=== PATIENT | male | born 1940 | race African-American/Black ===

== ENCOUNTER 2017-01-04 07:12 | Day surgery (SDC) | payer OTHER ==
[2017-01-03 17:22] VITALS: BMI 28.7
--- NOTE | 2017-01-04 06:09 | HP ---
History & Physical Update - History History: No Change - Physical Physical: No Change - Assessment Assessment: No Change - Plan Plan: No Change
[~2017-01-04 07:12] MED LIST: TOBRA 0.3%/DEXAMETH 0.1% OPHTHALMIC SUSP 2.5 ML BTL TP ONE
[2017-01-04] MEDS ORDERED: BSS (NA/CA/MG/K) BALANCED SALT SOLUTION OPHTH SOLN 15 ML BOTTLE ONE (07:19)
[2017-01-04] MEDS ORDERED: LIDOCAINE HCL/PF 1% SDV 5ML VIAL ONE (07:19)
[2017-01-04 07:35] VITALS: TEMP 98
[2017-01-04] MEDS ORDERED: CYCLOPENTOLATE HCL 1% OPHTH SOLN 2 ML BOTTLE ONE (07:47)
[2017-01-04] MEDS ORDERED: PHENYLEPHRINE 2.5% OPHTH SOLN 15 ML BOTTLE ONE (07:47)
[2017-01-04] MEDS ORDERED: MOXIFLOXACIN HCL 0.5% OPHTHALMIC 3 ML BOTTLE ONE (07:47)
[2017-01-04] MEDS ORDERED: TROPICAMIDE 1% OPHTH SOLN 15 ML BOTTLE ONE (07:47)
[2017-01-04] MEDS: CYCLOPENTOLATE HCL 1% OPHTH SOLN 2 ML BOTTLE OP SCH ×2 (08:01→08:17)
[2017-01-04] MEDS: PHENYLEPHRINE 2.5% OPHTH SOLN 15 ML BOTTLE OP SCH ×2 (08:01→08:17)
[2017-01-04] MEDS: MOXIFLOXACIN HCL 0.5% OPHTHALMIC 3 ML BOTTLE OP SCH ×2 (08:01→08:17)
[2017-01-04] MEDS: TROPICAMIDE 1% OPHTH SOLN 15 ML BOTTLE OP SCH ×2 (08:01→08:17)
[2017-01-04] MEDS ORDERED: MIDAZOLAM HCL 2 MG/2 ML SINGLE DOSE VIAL ONE (08:48)
[2017-01-04] MEDS ORDERED: TETRACAINE 0.5% OPHTH SOLN 2 ML BOTTLE OS ONE (09:00)
[2017-01-04] MEDS ORDERED: POVIDONE-IODINE 5% OPHTHALMIC PREP 30 ML SOLUTION OS ONE (09:03)
[2017-01-04] MEDS ORDERED: LIDOCAINE HCL 1% PRESERVATIVE FREE - 30ML VIAL IO ONE ×2 (09:11)
[2017-01-04] MEDS ORDERED: CHONDROITIN SU A/HYALUR SOD 1 KIT IO ONE ×2 (09:11)
[2017-01-04] MEDS ORDERED: BSS (NA/CA/MG/K) BALANCED SALT SOLUTION OPHTH SOLN 15 ML BOTTLE OS ONE (09:11)
[2017-01-04] MEDS ORDERED: EPINEPHrine/PF 1 MG/1 ML (1:1,000) AMPULE SQ ONE (09:20)
[2017-01-04] MEDS ORDERED: ACETYLCHOLINE 1:100 INTRA-OCUL 20 MG/2 ML KIT IO ONE (09:55)
[2017-01-04] MEDS ORDERED: TOBRA 0.3%/DEXAMETH 0.1% OPHTHALMIC SUSP 2.5 ML BTL TP ONE (09:59)
[2017-01-04 11:23] VITALS: BP 135/74; PULSE 60
--- NOTE | 2017-01-04 21:48 | OP ---
DATE OF OPERATION: 01/04/2017 SURGEON: Santhosh Anton MD PREOPERATIVE DIAGNOSIS: Cataract, left eye. OPERATION: Phacoemulsification and intraocular lens implantation, left eye. POSTOPERATIVE DIAGNOSIS: Cataract, left eye. ANESTHESIA: Topical. COMPLICATIONS: None. BLOOD LOSS: None. SPECIMEN: None. BRIEF HISTORY: The patient is a 76-year-old man with a past medical history of hypertension, who presented with decreased vision in the left eye down to 20/ 200 due to a dense 2+ nuclear sclerotic lens. After the risks, benefits and alternatives to cataract surgery were discussed with the patient, including the increased risk of complications due to his use of Flomax, the patient consented to surgery. DESCRIPTION OF PROCEDURE: The patient was brought to the operating room and prepped and draped in the usual sterile fashion and an eyelid speculum was inserted in the left eye. A paracentesis was made and the anterior chamber was inflated with nonpreserved lidocaine. This was followed by injection of Viscoat. A groove was made in the superotemporal clear cornea, which was tunneled forward with a crescent blade. The anterior chamber was entered with a 2.75 keratome. The cystotome was used to make an incision in the center of the capsule and a continuous curvilinear capsulorrhexis was created. The lens was hydrodissected until it was found to rotate freely within the capsular bag. Phacoemulsification was started, however, there was significant constriction of the pupil. At this point phacoemulsification was stopped and 5 iris hooks were placed in order to enlarge and stabilize the iris. Phacoemulsification was then restarted and the lens was removed in its entirety. Irrigation and aspiration was used to remove residual cortical material. The anterior chamber and capsular bag were reinflated with Provisc and a 22.5- diopter [id number] AcrySof intraocular lens was injected into the capsular bag using the [place] injector. The lens was dialed into place using Sinskey hook. Irrigation and aspiration was used to remove residual viscoelastic. The previously placed iris hooks were removed from the eye. 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 One 10-0 nylon suture was placed at the wound and Miochol was injected into the eye and the pupil was found to constrict round with no peaking. The wound was found to be watertight and the eye was in an appropriate pressure. The eyelid speculum was removed from the eye and TobraDex drops and a clear shield were placed over the left eye. The patient was transferred to the recovery room in stable condition and will follow up tomorrow. Damaso PADRON/[id number] MTDD
== END 2017-01-04 11:27 | disposition home or self-care (01) ==
LOC: JASU-SURG 07:12
PROVIDERS: ATTEND Ophthalmology
PROC: 08RK3JZ Replacement of Left Lens with Synthetic Substitute, Percutaneous Approach (ICD-10-PCS; principal; 2017-01-04 09:00)
DX: H26.8 Other specified cataract (principal)

== ENCOUNTER 2018-02-28 09:05 | Emergency (ER) | payer OTHER ==
[2018-02-28 09:17] VITALS: BMI 29.0
[2018-02-28] MEDS ORDERED: guaiFENesin 200 MG/10 ML 10 ML UNIT-DOSE CUPS PO ONE (09:45)
--- NOTE | 2018-02-28 09:46 | PDOC ---
History of Present Illness <Amilcar Jameson - Last Filed: 02/28/18 10:53> - General History Source: Patient Exam Limitations: No Limitations - History of Present Illness Initial Comments: 02/28/18 11:09 The patient is a 77 year old male, with a significant PMH of hypertension, hypercholesterolemia, prostate cancer (in remission), who presents to the emergency department with 3 days of non productive cough, sore throat and chest tightness. The patient states his chest tightness is made worse when he is coughing. The patient also reports intermittent shortness of breath when he is coughing. The patient reports he has tried sipping honey tea for the cough with mild relief. The patient states he has some chronic leg swelling but nothing more than usual. He denies any calf pain or tenderness. He denies any sick contacts. He denies any recent travel. The patient denies fever, chills, hemoptysis, orthpnea, shortness of breath with exertion, headache and dizziness. Denies nausea, vomit, diarrhea and constipation. Denies dysuria, frequency, urgency and hematuria. Allergies: NKA PCP: Dr. Elliot Devine <Chi Nick - Last Filed: 02/28/18 11:51> - General Chief Complaint: Shortness of Breath Stated Complaint: SORE THROAT, COUGH, ABD PAIN Time Seen by Provider: 02/28/18 09:31 Past History - Past Medical History Cancer: Yes (PROSTATE-RADIATION RX) Cardiac Disorders: Yes (prostate) COPD: No HTN: Yes Hypercholesterolemia: Yes - Immunization History Immunization Up to Date: Yes - Suicide/Smoking/Psychosocial Hx Smoking History: Never smoked Have you smoked in the past 12 months: No Information on smoking cessation initiated: No Hx Alcohol Use: No Drug/Substance Use Hx: No Substance Use Type: None Hx Substance Use Treatment: No <Amilcar Jameson - Last Filed: 02/28/18 10:53> <Chi Nick - Last Filed: 02/28/18 11:51> - Past Medical History Allergies/Adverse Reactions: Allergies Allergy/AdvReac Type Severity Reaction Status Date / Time No Known Allergies Allergy Verified 02/28/18 09:13 Home Medications: Ambulatory Orders Tamsulosin HCl [Flomax -] 0.4 mg PO HS 05/07/16 Pantoprazole Sodium 40 mg PO DAILY 01/03/17 Valsartan 80 mg PO DAILY 01/03/17 Benzonatate [Tessalon Pearls -] 100 mg PO TID PRN #21 capsule 02/28/18 Furosemide [Lasix] 20 mg PO DAILY 02/28/18 Guaifenesin [Robitussin] 10 ml PO Q6H PRN #1 bottle 02/28/18 Review of Systems - Review of Systems Comments:: 02/28/18 11:09 CONSTITUTIONAL: No reported: Fever, Chills, Diaphoresis, Generalized Weakness, Malaise, Loss of Appetite HEENT: Present: (+) Sore throat. No reported: Rhinorrhea, Nasal Congestion, Throat Swelling, Difficulty Swallowing, Mouth Swelling, Ear Pain, Eye Pain, Visual Changes CARDIOVASCULAR: Present: (+) Chest tightness. (+) Chronic leg swelling. No reported: Syncope, Palpitations, Irregular Heart Rate, Lightheadedness, Peripheral Edema RESPIRATORY: Present: (+) Non productive cough. (+) Intermittent Shortness of Breath. No reported: SOB with Exertion, Orthopnea, Wheezing, Stridor, Hemoptysis GASTROINTESTINAL: No reported: Abdominal pain, Abdominal Distension, Nausea, Vomiting, Diarrhea, Constipation, Melena, Hematochezia GENITOURINARY: No reported: Dysuria, Frequency, Urgency, Hesitancy, Flank Pain, Genital Pain MUSCULOSKELETAL: No reported: Myalgia, Arthralgia, Joint Swelling, Back pain, Neck Pain SKIN: No reported: Rash, Itching, Pallor HEMATOLOGIC/IMMUNOLOGIC: No reported: Easy Bleeding, Easy Bruising, Lymphadenopathy, Frequent infections ENDOCRINE: No reported: Unexplained Weight Gain, Unexplained Weight Loss, Heat Intolerance , Cold Intolerance NEUROLOGIC: No reported: Headache, Focal Weakness, Paresthesias, Vertigo, Lightheadedness, Unsteady Gait, Seizure, Mental Status Changes, Incontinence PSYCHIATRIC: No reported: Anxiety, Depression <Chi Nick - Last Filed: 02/28/18 11:51> *Physical Exam - Vital Signs Last Vital Signs Temp Pulse Resp BP Pulse Ox 98.3 F 67 18 123/71 100 02/28/18 09:15 02/28/18 09:15 02/28/18 09:15 02/28/18 09:15 02/28/18 09:15 <Amilcar Jameson - Last Filed: 02/28/18 10:53> - Vital Signs Last Vital Signs Temp Pulse Resp BP Pulse Ox 98.3 F 67 18 123/71 100 02/28/18 09:15 02/28/18 09:15 02/28/18 09:15 02/28/18 09:15 02/28/18 09:15 - Physical Exam Comments: 02/28/18 11:10 GENERAL: The patient is awake, alert, and fully oriented, Nontoxic - in no acute distress. HEAD: Normocephalic, atraumatic. EYES: extraocular movements intact, sclera anicteric, conjunctiva clear. ENT: Normal voice, Moist mucous membranes. NECK: Normal range of motion, supple LUNGS: Breath sounds equal, clear to auscultation bilaterally. No wheezes, no rhonchi, no rales. HEART: Regular rate and rhythm, without murmur, rub or gallop. ABDOMEN: Soft, nontender, No guarding, no rebound.No CVA tenderness EXTREMITIES: Normal range of motion, no edema. No cyanosis. No erythema, or tenderness. Neg homans sign NEUROLOGICAL: No facial assymetry, Normal speech, PSYCH: Normal mood, normal affect. SKIN: Warm, Dry, normal turgor. <Chi Nick - Last Filed: 02/28/18 11:51> Moderate Sedation - Procedure Monitoring Vital Signs: Vital Signs Temp Pulse Resp BP Pulse Ox 98.3 F 67 18 123/71 100 02/28/18 09:15 02/28/18 09:15 02/28/18 09:15 02/28/18 09:15 02/28/18 09:15 <Amilcar Jameson - Last Filed: 02/28/18 10:53> - Procedure Monitoring Vital Signs: Vital Signs Temp Pulse Resp BP Pulse Ox 98.3 F 67 18 123/71 100 02/28/18 09:15 02/28/18 09:15 02/28/18 09:15 02/28/18 09:15 02/28/18 09:15 <Chi Nick - Last Filed: 02/28/18 11:51> Heart Score/ECG Review - ECG Impressions Comment:: 02/28/18 09:59 Twelve-lead EKG was performed and reviewed by me. There is normal sinus rhythm with a normal rate. Rate of 72 The axis is normal. The intervals are normal. There is normal R wave progression Occasional PVCs <GisellAmilcar - Last Filed: 02/28/18 10:53> ED Treatment Course - RADIOLOGY Radiology Studies Ordered: Category Date Time Status CHEST PA & LAT [RAD] Stat Radiology 02/28/18 09:45 Ordered <GisellAmilcar deleon - Last Filed: 02/28/18 10:53> - RADIOLOGY Radiograph Interpretation: 02/28/18 11:51 EXAM#: TYPE/EXAM: RESULT: [id number] RAD/CHEST PA LAT Evaluate for pneumonia. Chest 2 views. Comparison study January 25, 2014 midline trachea no evidence of widening of the superior mediastinum. The cardiac silhouette is not enlarged. No evidence of pneumonia atelectasis, pleural effusion, or pneumothorax. The pulmonary vasculature is normal. Within the limitation of examination, no bulky hilar adenopathy is seen. Intact visualized osseous structures. Impression. No evidence of active moderate disease. Reported By: Td Finley MD - Medications Given in the ED: ED Medications Discontinued Medications Generic Name Dose Route Start Last Admin Trade Name Freq PRN Reason Stop Dose Admin Guaifenesin 10 ml 02/28/18 09:45 02/28/18 10:18 Robitussin - PO 02/28/18 09:46 10 ml ONCE ONE Administration <Chi Nick - Last Filed: 02/28/18 11:51> Medical Decision Making - Medical Decision Making 02/28/18 09:52 77y M hx of htn, hl, presents with complaint of cough, chest tightness, sore throat occasoniall nasal congestion for 3 days. Cough is nonproductive without hemoptysis, and pt notes the chest hurts when he is coughing alot. denies any anderson, cp on exertion, diaphoresis, n/v, palpitations.no sick contacts or recent travel suspect uri will ck xray tor /o pna ekg o screen for acs although clnical history more cw uri 02/28/18 10:53 The patient's x-rays negative will discharge patient with supportive measures at home and PMD follow-up I discussed the physical exam findings, ancillary test results and final diagnoses with the patient. I answered all of the patient's questions. The patient was satisfied with the care received and felt comfortable with the discharge plan and treatment plan. The patient will call their primary care physician within 24 hours to arrange follow-up and will return to the Emergency Department with any new, persistent or worsening symptoms. <Amilcar Jameson - Last Filed: 02/28/18 10:53> *DC/Admit/Observation/Transfer - Discharge Dispostion Decision to Admit order: No <Amilcar Jameson - Last Filed: 02/28/18 10:53> - Attestations Scribe Attestion: 02/28/18 11:10 Documentation prepared by Chi Nick, acting as medical claims examiner for Amilcar Jameson MD. <Chi Nick - Last Filed: 02/28/18 11:51> Diagnosis at time of Disposition: Upper respiratory infection Qualifiers: URI type: unspecified viral URI Qualified Code(s): J06.9 - Acute upper respiratory infection, unspecified - Discharge Dispostion Disposition: HOME Condition at time of disposition: Improved - Prescriptions Prescriptions: Benzonatate [Tessalon Pearls -] 100 mg PO TID PRN #21 capsule PRN Reason: Cough Guaifenesin [Robitussin] 10 ml PO Q6H PRN #1 bottle PRN Reason: Cough - Referrals Referrals: Elliot Devine MD [Primary Care Provider] - - Patient Instructions Printed Discharge Instructions: DI for Viral Upper Respiratory Infection -- Adult Additional Instructions: Return to the emergency department immediately with ANY new, persistent or worsening symptoms including any fevers, shortness of breath, chest pain or other concerns Sure to stay well-hydrated Take the medicines as needed for your cough You MUST call and follow up with your doctor in 4-5 days for further evaluation of your symptoms. Results were discussed with you. Please make sure your doctor reviews the results of your emergency evaluation. If you had any xrays during your visit, it was read preliminarily by myself, a Radiologist will review it and if there are any additional findings we will call you. Print Language: [place] - Post Discharge Activity
[2018-02-28] MEDS ORDERED: guaiFENesin 200 MG/10 ML 10 ML UNIT-DOSE CUPS ONE (10:10)
[2018-02-28 12:47] VITALS: BP 121/56; PULSE 78; TEMP 97.9
--- NOTE | 2018-02-28 16:13 | EKG ---
Test Reason : Blood Pressure : / mmHG Vent. Rate : 072 BPM Atrial Rate : 072 BPM P-R Int : 156 ms QRS Dur : 086 ms QT Int : 428 ms P-R-T Axes : 070 014 014 degrees QTc Int : 468 ms SINUS RHYTHM WITH OCCASIONAL PREMATURE VENTRICULAR COMPLEXES OTHERWISE NORMAL ECG WHEN COMPARED WITH ECG OF 07-MAY-2016 17:18, PREMATURE VENTRICULAR COMPLEXES ARE NOW PRESENT Confirmed by MD Cornelio, Marcelo ([id number]) on 02/28/2018 4:13:39 PM Referred By: Confirmed By:Marcelo Grimes MD
== END 2018-02-28 11:26 | disposition home or self-care (01) ==
LOC: JER 09:05
DX: J06.9 Acute upper respiratory infection, unspecified (principal); I10 Essential (primary) hypertension; E78.00 Pure hypercholesterolemia, unspecified; Z85.46 Personal history of malignant neoplasm of prostate
CPT/HCPCS: 71046-TC-FY; 93005; 93010; 99282-25